=== PATIENT | male | born 1995 | race Caucasian/White ===

== ENCOUNTER 2020-07-05 23:00 | Emergency (ER) | payer OTHER ==
[~2020-07-05] VITALS: Ht 193 cm; Wt 113.6 kg
[2020-07-05 23:10] VITALS: BP 145/96
--- NOTE | 2020-07-05 23:27 | PHYS DOC ---
Past History Past Medical History: No Pertinent History General Adult EDM: Chief Complaint: ANKLE PROBLEM HPI: HPI: Healthy 25-year-old male who presents for evaluation of left ankle pain and deformity status post inversion injury while playing basketball earlier today. Has difficulty mobilizing the toes due to significant pain. No distal weakness or paresthesia. No other areas of pain noted. Review of Systems: Review of Systems: Gen: No fever, chills. CV: No CP, palpitations. Resp. No SOB, cough. GI: No abd pain, N/V. Neuro: No CARLIN, dizziness, weakness. MSK: Reports arthralgia. Skin: No acute rash or lesion. Remainder of systems reviewed and negative unless otherwise specified. Allergies: Allergies: Allergies Coded Allergies Type Severity Reaction Last Updated Verified No Known Drug Allergies 07/05/20 No Physical Exam: PE: Gen: NAD. Well nourished. Head: NC/AT. Eyes: No scleral icterus. No conjunctival injection. ENT: MMM. Posterior OP clear. Neck: Supple. NT. CV: RRR. Peripheral pulses intact. Resp: CTAB. Abd: Soft. NT. ND. MSK: No peripheral cyanosis. Closed left ankle deformity with swelling and nonfocal tenderness. DP pulses 2+ and symmetric. Neuro: A&Ox3. Strength & sensation grossly intact throughout. Skin. Warm. Dry. Psych: Appropriate mood & affect. EKG: EKG: [] Radiology/Procedures: Radiology/Procedures: Exam: Left ankle 3 views INDICATION: Frontal, lateral and oblique views of the left ankle TECHNIQUE: None Comparisons: None FINDINGS: Bone mineralization is normal. No acute or healed fractures. There is diffuse soft tissue swelling overlying the lateral malleolus. Joint spaces are well- maintained. IMPRESSION: Extensive soft tissue swelling predominantly over the lateral malleolus without underlying osseous abnormality identified. Electronically signed by: Mariana Ryan MD (07/05/2020 11:59 PM) [facility] Heart Score: C/O Chest Pain: N/A Risk Factors: Risk Factors: DM, Current or recent (<one month) smoker, HTN, HLP, family history of CAD, obesity. Risk Scores: Score 0 - 3: 2.5% MACE over next 6 weeks - Discharge Home Score 4 - 6: 20.3% MACE over next 6 weeks - Admit for Clinical Observation Score 7 - 10: 72.7% MACE over next 6 weeks - Early Invasive Strategies Course & Med Decision Making: Course & Med Decision Making Pertinent Labs and Imaging studies reviewed. (See chart for details) In summary, 25M p/w left ankle pain/swelling s/p inversion injury while playing basketball. Significant swelling but no open lesions. Distal toes are warm and well perfused with strong DP pulse. Will obtain XR. 0007: X-ray negative for acute osseous abnormality. Suspect possible high-grade sprain, however. Will be placed in air splint. Outpatient orthopedics follow- up. Return precautions given. Dragon Disclaimer: Dragyefri Disclaimer: This electronic medical record was generated, in whole or in part, using a voice recognition dictation system. Departure Departure: Impression: Primary Impression: Left ankle sprain Disposition: 01 DC HOME SELF CARE/HOMELESS Condition: STABLE Referrals: PCP,YAN (PCP) ANNETTE NORWOOD MD Patient Instructions: Ankle Sprain Scripts Cyclobenzaprine Hcl (CYCLOBENZAPRINE HCL) 10 Mg Tablet 1 TAB PO TID for muscle pain/spasm, #30 TAB Prov: VICTORIANO DELEON DO 07/05/20 VICTORIANO DELEON DO Jul 05, 2020 23:27
[2020-07-05] MEDS ORDERED: CYCL-331 PO (23:59)
--- NOTE | 2020-07-06 00:01 | RAD ---
Exam: Left ankle 3 views INDICATION: Frontal, lateral and oblique views of the left ankle TECHNIQUE: None Comparisons: None FINDINGS: Bone mineralization is normal. No acute or healed fractures. There is diffuse soft tissue swelling ov erlying the lateral malleolus. Joint spaces are well-maintained. IMPRESSION: Extensive soft tissue swelling predominantly over the lateral malleolus without underlying osseous ab normality identified. Electronically signed by: Mariana Ryan MD (07/05/2020 11:59 PM) [facility]
== END 2020-07-06 00:20 | disposition home or self-care (01) ==
LOC: ER 23:00
DX: S93.402A Sprain of unspecified ligament of left ankle, initial encounter (principal); X50.9XXA Other and unspecified overexertion or strenuous movements or postures, initial encounter; Y93.67 Activity, basketball; Y92.89 Other specified places as the place of occurrence of the external cause; Y99.8 Other external cause status
CPT/HCPCS: 73610; 99284

== ENCOUNTER → 2020-09-20 | Day surgery (SDC) | payer OTHER ==
[~2020-09-20] MED LIST: ALBUTEROL SULFATE 2.5 MG/3 ML NEBU. ONE; ALBUTEROL SULFATE 8GM INHALER. INH ONE; ALBUTEROL SULFATE 8GM INHALER. ONE; CYCL-331 PO; IPRATRPIUM/ALBUTEROL 0.5/2.5MG 3 ML NEBU. NEB PRN; IV RINGERS SOLUTION,LACTATED 1,000 ML IV SCH; LIDOCAINE 2% PF 5 ML VIAL. ONE; MIDAZOLAM HCL PF 2 MG/2 ML VIAL. IV ONE; ONDANSETRON PF 4 MG/2 ML VIAL. IV PRN; PROPOFOL 10,000 MCG/ML (20ML) VIAL IV ONE
[2020-09-20 11:40] VITALS: BP 118/88
--- NOTE | 2020-09-23 14:07 | PATHOLOGY ---
[facility] Accession Number: [id number] . 01 Material submitted: . PART A: duodenum - DUODENAL BIOPSY PART B: stomach - ANTRUM GASTRITIS BIOPSY. Modifiers: ANTRUM PART C: esophagus - DISTAL ESOPHAGUS BIOPSY. Modifiers: distal . 01 Clinical history: . ACID REFLUX EGD WITH BIOPSY . 02 Diagnosis: A. Duodenal biopsies: - No significant pathologic abnormalities. . B. Gastric biopsy, antrum: - Chronic gastritis, mild. . C. Esophageal biopsy, distal esophagus: - Reflux esophagitis. . (MADYM:rio; 09/23/2020) [facility] 09/23/2020 1154 Local . 02 Comment: Sections of the duodenal biopsy reveal segments of duodenal and small intestine mucosa. Where best oriented, the mucosal villi show no sprue-like changes or significant inflammatory changes. . Sections of the gastric biopsy reveal gastric antral and antral-body transition mucosa showing congestion and mild chronic inflammation. A properly controlled immunoperoxidase stain for Helicobacter is negative for Helicobacter organisms. . Sections of the distal esophageal biopsy reveal a segment of hyperplastic squamous esophageal mucosa consistent with reflux esophagitis. There is no evidence of Solares's change, dysplasia or malignancy. . (JPM:rio; 09/23/2020) . . Special stain performed: Immunoperoxidase stain for Helicobacter on B1 . 02 Electronically signed: . Jagdish Vale MD, Pathologist NPI- [id number] . 01 Gross description: . A. Received in formalin labeled "Jovon Jeff, duodenal BX" are multiple fragments of sandoval-brown soft tissue measuring in aggregate 1.0 x 0.5 x 0.1 cm. The specimen is submitted entirely in A1. . B. Received in formalin labeled "Jovon Jeff, antrum gastritis" are 2 fragments of sandoval-brown soft tissue measuring in aggregate 0.6 x 0.2 x 0.1 cm. The specimen is submitted entirely in B1. . C. Received in formalin labeled "Randee, Jovon, distal esophagus" is a fragment of sandoval-brown soft tissue measuring 0.4 x 0.3 x 0.1 cm. The specimen is submitted entirely in C1. ([facility] [place]; 09/21/2020) [facility] 09/21/2020 1036 Local . 02 Pathologist provided ICD-10: K29.50, K21.00 . 02 CPT . 920318, 848801, 462954, [id number] Specimen Comment: A courtesy copy of this report has been sent to [phone] Specimen Comment: Report sent to Specimen Comment: A duplicate report has been generated due to demographic updates. Performed at: 01 [facility] [address] [facility] [address], [place] [id number] MD Smooth Deal MD Phone: [phone] Performed at: 02 [facility] [address] [place], [place] [id number] MD Jagdish Vale MD Phone: [phone]
== END | disposition home or self-care (01) ==
LOC: SURG 09:26
PROVIDERS: ATTEND Internal Medicine Gastroenterology
DX: R13.10 Dysphagia, unspecified (principal); R12 Heartburn; K31.89 Other diseases of stomach and duodenum; K22.8 Other specified diseases of esophagus; K21.00 Gastro-esophageal reflux disease with esophagitis, without bleeding; K44.9 Diaphragmatic hernia without obstruction or gangrene; K29.50 Unspecified chronic gastritis without bleeding; Z72.89 Other problems related to lifestyle; Z79.899 Other long term (current) drug therapy
CPT/HCPCS: 43239; J2001; J2704; J7120; J7613